=== PATIENT | male | born 1980 | race Caucasian/White ===

== ENCOUNTER → 2019-09-26 11:48 | Outpatient (BNVA) | payer MEDICAID, SELFPAY | PROVIDERS: PCP Family Medicine; Visit Provider Social Worker Clinical | DX: F63.81 Intermittent explosive disorder (principal); F33.1 Major depressive disorder, recurrent, moderate; F70 Mild intellectual disabilities | CPT/HCPCS: 90791 ==

== ENCOUNTER → 2019-10-28 12:38 | Outpatient (BNVA) | payer MEDICAID, SELFPAY | PROVIDERS: PCP Family Medicine; Visit Provider Social Worker Clinical | DX: F41.1 Generalized anxiety disorder (principal); F33.1 Major depressive disorder, recurrent, moderate | CPT/HCPCS: 90834 ==

== ENCOUNTER → 2019-11-01 11:43 | Outpatient (BNVA) | payer MEDICAID, SELFPAY | PROVIDERS: PCP Family Medicine; Visit Provider Nurse Practitioner | DX: F70 Mild intellectual disabilities (principal); F63.81 Intermittent explosive disorder; F33.3 Major depressive disorder, recurrent, severe with psychotic symptoms | CPT/HCPCS: 99213 ==

== ENCOUNTER → 2019-11-25 12:51 | Outpatient (BNVA) | payer MEDICAID, SELFPAY | PROVIDERS: PCP Family Medicine; Visit Provider Social Worker Clinical | DX: F63.81 Intermittent explosive disorder (principal); F70 Mild intellectual disabilities | CPT/HCPCS: 90834 ==

== ENCOUNTER → 2019-12-30 08:16 | Outpatient (BNVA) | payer MEDICAID, SELFPAY | PROVIDERS: PCP Family Medicine; Visit Provider Social Worker Clinical | DX: F33.3 Major depressive disorder, recurrent, severe with psychotic symptoms (principal); F63.81 Intermittent explosive disorder; F70 Mild intellectual disabilities | CPT/HCPCS: 90834 ==

== ENCOUNTER → 2020-01-24 07:44 | Outpatient (BNVA) | payer MEDICAID, SELFPAY | PROVIDERS: PCP Family Medicine; Visit Provider Nurse Practitioner | DX: F33.3 Major depressive disorder, recurrent, severe with psychotic symptoms (principal); F63.81 Intermittent explosive disorder; F70 Mild intellectual disabilities; F43.12 Post-traumatic stress disorder, chronic | CPT/HCPCS: 99213 ==

== ENCOUNTER → 2020-01-29 08:28 | Outpatient (BNVA) | payer MEDICAID, SELFPAY | PROVIDERS: PCP Family Medicine; Visit Provider Social Worker Clinical | DX: F33.3 Major depressive disorder, recurrent, severe with psychotic symptoms (principal); F63.81 Intermittent explosive disorder; F70 Mild intellectual disabilities | CPT/HCPCS: 90834 ==

== ENCOUNTER → 2020-03-02 07:56 | Outpatient (BNVA) | payer MEDICAID, SELFPAY | PROVIDERS: PCP Family Medicine; Visit Provider Social Worker Clinical | DX: F33.3 Major depressive disorder, recurrent, severe with psychotic symptoms (principal); F63.81 Intermittent explosive disorder; F70 Mild intellectual disabilities | CPT/HCPCS: 90834 ==

== ENCOUNTER → 2020-04-01 08:03 | Outpatient (BNVA) | payer MEDICAID, SELFPAY | PROVIDERS: PCP Family Medicine; Visit Provider Social Worker Clinical | DX: F33.3 Major depressive disorder, recurrent, severe with psychotic symptoms (principal); F63.81 Intermittent explosive disorder; F70 Mild intellectual disabilities | CPT/HCPCS: 90834 ==

== ENCOUNTER → 2020-04-21 09:22 | Outpatient (BNVA) | payer MEDICAID, SELFPAY | PROVIDERS: PCP Family Medicine; Visit Provider Nurse Practitioner | DX: F70 Mild intellectual disabilities (principal); F63.81 Intermittent explosive disorder; F33.3 Major depressive disorder, recurrent, severe with psychotic symptoms | CPT/HCPCS: 99213 ==

== ENCOUNTER → 2020-04-29 10:23 | Outpatient (BNVA) | payer MEDICAID, SELFPAY | PROVIDERS: PCP Family Medicine; Visit Provider Social Worker Clinical | DX: F33.3 Major depressive disorder, recurrent, severe with psychotic symptoms (principal); F63.81 Intermittent explosive disorder; F70 Mild intellectual disabilities | CPT/HCPCS: 90834 ==

== ENCOUNTER → 2020-05-18 11:22 | Outpatient (BNVA) | payer MEDICAID, SELFPAY | PROVIDERS: PCP Family Medicine; Visit Provider Nurse Practitioner Family | DX: E11.9 Type 2 diabetes mellitus without complications (principal); E78.5 Hyperlipidemia, unspecified; I10 Essential (primary) hypertension; Z87.442 Personal history of urinary calculi | CPT/HCPCS: 80053; 80061; 82043; 83036; 85025; 87086 ==

== ENCOUNTER → 2020-06-01 09:31 | Outpatient (BNVA) | payer MEDICAID, SELFPAY | PROVIDERS: PCP Family Medicine; Visit Provider Social Worker Clinical | DX: F33.3 Major depressive disorder, recurrent, severe with psychotic symptoms (principal); F63.81 Intermittent explosive disorder; F70 Mild intellectual disabilities | CPT/HCPCS: 90834 ==

== ENCOUNTER → 2020-07-01 08:20 | Outpatient (BNVA) | payer MEDICAID, SELFPAY | PROVIDERS: PCP Family Medicine; Visit Provider Social Worker Clinical | DX: F33.3 Major depressive disorder, recurrent, severe with psychotic symptoms (principal); F63.81 Intermittent explosive disorder; F70 Mild intellectual disabilities | CPT/HCPCS: 90834 ==

== ENCOUNTER → 2020-07-14 08:27 | Outpatient (BNVA) | payer MEDICAID, SELFPAY | PROVIDERS: PCP Family Medicine; Visit Provider Nurse Practitioner | DX: F33.3 Major depressive disorder, recurrent, severe with psychotic symptoms (principal); F70 Mild intellectual disabilities; F63.81 Intermittent explosive disorder | CPT/HCPCS: 99213 ==

== ENCOUNTER → 2020-07-27 08:57 | Outpatient (BNVA) | payer MEDICAID, SELFPAY | PROVIDERS: PCP Family Medicine; Visit Provider Social Worker Clinical | DX: F33.3 Major depressive disorder, recurrent, severe with psychotic symptoms (principal); F63.81 Intermittent explosive disorder; F70 Mild intellectual disabilities | CPT/HCPCS: 90834 ==

== ENCOUNTER → 2020-08-17 11:38 | Outpatient (BNVA) | payer MEDICAID, SELFPAY | PROVIDERS: PCP Family Medicine; Visit Provider Nurse Practitioner Family | DX: E11.9 Type 2 diabetes mellitus without complications (principal); E11.65 Type 2 diabetes mellitus with hyperglycemia; I10 Essential (primary) hypertension; E78.5 Hyperlipidemia, unspecified | CPT/HCPCS: 80053; 80061; 83036; 83735; 85025 ==

== ENCOUNTER → 2020-09-01 08:21 | Outpatient (BNVA) | payer MEDICAID, SELFPAY | PROVIDERS: PCP Family Medicine; Visit Provider Social Worker Clinical | DX: F70 Mild intellectual disabilities (principal); F63.81 Intermittent explosive disorder; F33.3 Major depressive disorder, recurrent, severe with psychotic symptoms | CPT/HCPCS: 90834 ==

== ENCOUNTER → 2020-09-30 09:34 | Outpatient (BNVA) | payer MEDICAID, SELFPAY | PROVIDERS: PCP Family Medicine; Visit Provider Social Worker Clinical | DX: F70 Mild intellectual disabilities (principal); F63.81 Intermittent explosive disorder; F33.3 Major depressive disorder, recurrent, severe with psychotic symptoms | CPT/HCPCS: 90834 ==

== ENCOUNTER → 2020-10-29 07:57 | Outpatient (BNVA) | payer MEDICAID, SELFPAY | PROVIDERS: PCP Family Medicine; Visit Provider Social Worker Clinical | DX: F63.81 Intermittent explosive disorder (principal); F70 Mild intellectual disabilities; F33.3 Major depressive disorder, recurrent, severe with psychotic symptoms | CPT/HCPCS: 90834 ==

== ENCOUNTER → 2020-11-16 12:22 | Outpatient (BNVA) | payer MEDICAID, SELFPAY | PROVIDERS: PCP Family Medicine; Visit Provider Social Worker Clinical | DX: F70 Mild intellectual disabilities (principal); F33.1 Major depressive disorder, recurrent, moderate; E11.65 Type 2 diabetes mellitus with hyperglycemia | CPT/HCPCS: 90791; 80053; 80061; 83036; 85025 ==

== ENCOUNTER → 2020-12-02 08:15 | Outpatient (BNVA) | payer MEDICAID, SELFPAY | PROVIDERS: PCP Family Medicine; Visit Provider Social Worker Clinical | DX: F33.3 Major depressive disorder, recurrent, severe with psychotic symptoms (principal); F63.81 Intermittent explosive disorder; F70 Mild intellectual disabilities | CPT/HCPCS: 90834 ==

== ENCOUNTER → 2020-12-16 07:52 | Outpatient (BNVA) | payer MEDICAID, SELFPAY | PROVIDERS: PCP Family Medicine; Visit Provider Nurse Practitioner | DX: F70 Mild intellectual disabilities (principal); F63.81 Intermittent explosive disorder; F33.3 Major depressive disorder, recurrent, severe with psychotic symptoms | CPT/HCPCS: 99214 ==

== ENCOUNTER → 2020-12-31 08:13 | Outpatient (BNVA) | payer MEDICAID, SELFPAY | PROVIDERS: PCP Family Medicine; Visit Provider Social Worker Clinical | DX: F63.81 Intermittent explosive disorder (principal); F70 Mild intellectual disabilities; F33.3 Major depressive disorder, recurrent, severe with psychotic symptoms | CPT/HCPCS: 90834 ==

== ENCOUNTER → 2021-01-28 08:37 | Outpatient (BNVA) | payer MEDICAID, SELFPAY | PROVIDERS: PCP Family Medicine; Visit Provider Social Worker Clinical | DX: F63.81 Intermittent explosive disorder (principal); F33.3 Major depressive disorder, recurrent, severe with psychotic symptoms | CPT/HCPCS: 90834 ==

== ENCOUNTER → 2021-03-02 08:56 | Outpatient (BNVA) | payer MEDICAID, SELFPAY | PROVIDERS: PCP Family Medicine; Visit Provider Social Worker Clinical | DX: F63.81 Intermittent explosive disorder (principal); F33.3 Major depressive disorder, recurrent, severe with psychotic symptoms; F70 Mild intellectual disabilities | CPT/HCPCS: 90834 ==

== ENCOUNTER → 2021-03-10 12:45 | Outpatient (BNVA) | payer MEDICAID, SELFPAY | PROVIDERS: PCP Family Medicine; Visit Provider Nurse Practitioner | DX: F33.3 Major depressive disorder, recurrent, severe with psychotic symptoms (principal); F70 Mild intellectual disabilities; F63.81 Intermittent explosive disorder | CPT/HCPCS: 99214 ==

== ENCOUNTER → 2021-04-01 07:35 | Outpatient (BNVA) | payer MEDICAID, SELFPAY | PROVIDERS: PCP Family Medicine; Visit Provider Social Worker Clinical | DX: F63.81 Intermittent explosive disorder (principal); F33.3 Major depressive disorder, recurrent, severe with psychotic symptoms; F70 Mild intellectual disabilities | CPT/HCPCS: 90834 ==

== ENCOUNTER → 2021-04-29 15:06 | Outpatient (BNVA) | payer MEDICAID, SELFPAY | PROVIDERS: PCP Family Medicine; Visit Provider Social Worker Clinical | DX: F63.81 Intermittent explosive disorder (principal); F33.3 Major depressive disorder, recurrent, severe with psychotic symptoms; F70 Mild intellectual disabilities | CPT/HCPCS: 90834 ==

== ENCOUNTER → 2021-05-18 08:48 | Outpatient (BNVA) | payer MEDICAID, SELFPAY | PROVIDERS: PCP Family Medicine; Visit Provider Social Worker Clinical | DX: F63.81 Intermittent explosive disorder (principal); F33.3 Major depressive disorder, recurrent, severe with psychotic symptoms; F70 Mild intellectual disabilities | CPT/HCPCS: 90834 ==

== ENCOUNTER → 2021-06-02 13:09 | Outpatient (BNVA) | payer MEDICAID, SELFPAY | PROVIDERS: PCP Family Medicine; Visit Provider Nurse Practitioner | DX: F33.3 Major depressive disorder, recurrent, severe with psychotic symptoms (principal); F70 Mild intellectual disabilities; F63.81 Intermittent explosive disorder | CPT/HCPCS: 99214 ==

== ENCOUNTER → 2021-06-16 07:20 | Outpatient (BNVA) | payer MEDICAID, SELFPAY | PROVIDERS: PCP Family Medicine; Visit Provider Social Worker Clinical | DX: F63.81 Intermittent explosive disorder (principal); F33.3 Major depressive disorder, recurrent, severe with psychotic symptoms; F43.12 Post-traumatic stress disorder, chronic | CPT/HCPCS: 90834 ==

== ENCOUNTER → 2021-07-19 08:00 | Outpatient (BNVA) | payer MEDICAID, SELFPAY | PROVIDERS: PCP Family Medicine; Visit Provider Social Worker Clinical | DX: F63.81 Intermittent explosive disorder (principal); F33.3 Major depressive disorder, recurrent, severe with psychotic symptoms; F70 Mild intellectual disabilities | CPT/HCPCS: 90834 ==

== ENCOUNTER → 2021-08-16 07:58 | Outpatient (BNVA) | payer MEDICAID, SELFPAY | PROVIDERS: PCP Family Medicine; Visit Provider Social Worker Clinical | DX: F33.3 Major depressive disorder, recurrent, severe with psychotic symptoms (principal); F63.81 Intermittent explosive disorder; F70 Mild intellectual disabilities | CPT/HCPCS: 90834 ==

== ENCOUNTER → 2021-08-18 13:05 | Outpatient (BNVA) | payer MEDICAID, SELFPAY | PROVIDERS: PCP Family Medicine; Visit Provider Nurse Practitioner | DX: F33.3 Major depressive disorder, recurrent, severe with psychotic symptoms (principal); F70 Mild intellectual disabilities; F63.81 Intermittent explosive disorder | CPT/HCPCS: 99214 ==

== ENCOUNTER → 2021-09-22 08:00 | Outpatient (BNVA) | payer MEDICAID, SELFPAY | PROVIDERS: PCP Family Medicine; Visit Provider Social Worker Clinical | DX: F63.81 Intermittent explosive disorder (principal); F33.3 Major depressive disorder, recurrent, severe with psychotic symptoms; F79 Unspecified intellectual disabilities | CPT/HCPCS: 90834 ==

== ENCOUNTER → 2021-10-19 12:23 | Outpatient (BNVA) | payer MEDICAID, SELFPAY | PROVIDERS: PCP Family Medicine; Visit Provider Nurse Practitioner Family | DX: E11.65 Type 2 diabetes mellitus with hyperglycemia (principal); R35.0 Frequency of micturition; I10 Essential (primary) hypertension; Z87.442 Personal history of urinary calculi; E78.5 Hyperlipidemia, unspecified | CPT/HCPCS: 80053; 80061; 82043; 82306; 82607; 83036; 83735; 84443; 85025 ==

== ENCOUNTER → 2021-10-25 08:20 | Outpatient (BNVA) | payer MEDICAID, SELFPAY | PROVIDERS: PCP Family Medicine; Visit Provider Social Worker Clinical | DX: F63.81 Intermittent explosive disorder (principal); F33.3 Major depressive disorder, recurrent, severe with psychotic symptoms; F70 Mild intellectual disabilities | CPT/HCPCS: 90834 ==

== ENCOUNTER → 2021-11-10 12:40 | Outpatient (BNVA) | payer MEDICAID, SELFPAY | PROVIDERS: PCP Family Medicine; Visit Provider Nurse Practitioner | DX: F70 Mild intellectual disabilities (principal); F33.3 Major depressive disorder, recurrent, severe with psychotic symptoms; F63.81 Intermittent explosive disorder | CPT/HCPCS: 99214 ==

== ENCOUNTER → 2021-12-01 07:55 | Outpatient (BNVA) | payer MEDICAID, SELFPAY | PROVIDERS: PCP Family Medicine; Visit Provider Social Worker Clinical | DX: F63.81 Intermittent explosive disorder (principal); F33.3 Major depressive disorder, recurrent, severe with psychotic symptoms; F70 Mild intellectual disabilities | CPT/HCPCS: 90834 ==

== ENCOUNTER → 2021-12-29 07:18 | Outpatient (BNVA) | payer MEDICAID, SELFPAY | PROVIDERS: PCP Family Medicine; Visit Provider Social Worker Clinical | DX: F63.81 Intermittent explosive disorder (principal); F33.3 Major depressive disorder, recurrent, severe with psychotic symptoms; F70 Mild intellectual disabilities | CPT/HCPCS: 90834 ==

== ENCOUNTER → 2022-01-27 07:34 | Outpatient (BNVA) | payer MEDICAID, SELFPAY | PROVIDERS: PCP Family Medicine; Visit Provider Social Worker Clinical | DX: F63.81 Intermittent explosive disorder (principal); F33.3 Major depressive disorder, recurrent, severe with psychotic symptoms; F70 Mild intellectual disabilities | CPT/HCPCS: 90834 ==

== ENCOUNTER → 2022-02-10 12:35 | Outpatient (BNVA) | payer MEDICAID, SELFPAY | PROVIDERS: PCP Family Medicine; Visit Provider Nurse Practitioner | DX: F33.3 Major depressive disorder, recurrent, severe with psychotic symptoms (principal); F70 Mild intellectual disabilities; F63.81 Intermittent explosive disorder | CPT/HCPCS: 99214 ==

== ENCOUNTER → 2022-02-16 06:22 | Outpatient (BNVA) | payer MEDICAID, SELFPAY | PROVIDERS: PCP Family Medicine; Visit Provider Social Worker Clinical | DX: F63.81 Intermittent explosive disorder (principal); F33.3 Major depressive disorder, recurrent, severe with psychotic symptoms; F70 Mild intellectual disabilities | CPT/HCPCS: 90834 ==

== ENCOUNTER → 2022-05-05 10:50 | Outpatient (BNVA) | payer MEDICAID, SELFPAY | PROVIDERS: PCP Family Medicine; Visit Provider Nurse Practitioner Family | DX: E11.65 Type 2 diabetes mellitus with hyperglycemia (principal); R35.0 Frequency of micturition; I10 Essential (primary) hypertension; E78.5 Hyperlipidemia, unspecified; E55.9 Vitamin D deficiency, unspecified | CPT/HCPCS: 80053; 80061; 82306; 83036; 83735; 84443; 85025 ==

== ENCOUNTER → 2022-09-08 09:25 | Outpatient (BNVA) | payer MEDICAID, SELFPAY | PROVIDERS: PCP Family Medicine; Visit Provider Nurse Practitioner Family | DX: J06.9 Acute upper respiratory infection, unspecified (principal); E78.5 Hyperlipidemia, unspecified; E11.9 Type 2 diabetes mellitus without complications; E11.65 Type 2 diabetes mellitus with hyperglycemia; R05.9 Cough, unspecified; B02.9 Zoster without complications; I10 Essential (primary) hypertension | CPT/HCPCS: 80053; 80061; 83036; 85025 ==

== ENCOUNTER → 2023-05-17 10:19 | Outpatient (BNVA) | payer MEDICAID, SELFPAY | PROVIDERS: PCP Family Medicine; Visit Provider Nurse Practitioner Family | DX: I10 Essential (primary) hypertension (principal); R35.0 Frequency of micturition; E11.65 Type 2 diabetes mellitus with hyperglycemia; E55.9 Vitamin D deficiency, unspecified; W57.XXXA Bitten or stung by nonvenomous insect and other nonvenomous arthropods, initial encounter | CPT/HCPCS: 80053; 80061; 82306; 83036; 83735; 84443; 85025; 86618; 86666; 86757 ==

== ENCOUNTER → 2023-11-16 13:42 | Outpatient (BNVA) | payer MEDICAID, SELFPAY | PROVIDERS: PCP Nurse Practitioner Family; Visit Provider Nurse Practitioner Family | DX: E11.65 Type 2 diabetes mellitus with hyperglycemia (principal); E55.9 Vitamin D deficiency, unspecified | CPT/HCPCS: 80053; 80061; 82306; 83036; 83735; 84443; 85025 ==

== ENCOUNTER → 2024-09-12 10:48 | Outpatient (BNVA) | payer MEDICAID, SELFPAY | PROVIDERS: PCP Nurse Practitioner Family; Visit Provider Nurse Practitioner Family | DX: E11.65 Type 2 diabetes mellitus with hyperglycemia (principal) | CPT/HCPCS: 80053; 80061; 82306; 83036; 84443; 85025 ==

== ENCOUNTER → 2025-01-06 10:48 | Outpatient (BNVA) | payer MEDICAID, SELFPAY | PROVIDERS: PCP Nurse Practitioner Family; Visit Provider Nurse Practitioner Family | DX: E11.65 Type 2 diabetes mellitus with hyperglycemia (principal) | CPT/HCPCS: 80053; 80061; 82306; 83036 ==

== ENCOUNTER → 2025-07-08 13:43 | Outpatient (BNVA) | payer MEDICAID, SELFPAY | PROVIDERS: PCP Nurse Practitioner Family; Visit Provider Nurse Practitioner Family | DX: E11.65 Type 2 diabetes mellitus with hyperglycemia (principal) | CPT/HCPCS: 80053; 80061; 82306; 83036; 84443; 85025 ==

== ENCOUNTER → 2025-07-30 09:54 | Outpatient (BNVA) | payer MEDICAID, SELFPAY | PROVIDERS: PCP Nurse Practitioner Family; Visit Provider Nurse Practitioner Family | DX: R74.8 Abnormal levels of other serum enzymes (principal) | CPT/HCPCS: 80076; 86705; 86706; 86709; 86803; 87340 ==

== ENCOUNTER 2025-08-08 10:23 | Outpatient (CLI) | payer MEDICAID, SELFPAY ==
--- NOTE | 2025-08-08 10:45 | US_ITS ---
WS: [id number] RIGHT UPPER QUADRANT ULTRASOUND HISTORY: R74.8 - Abnormal levels of other serum enzymes COMPARISON: None available. Liver: 17.8 cm in length. Normal size liver and echogenicity. No bile duct dilatation or mass. Portal Vein: Normal hepatopetal flow with monophasic waveform. Gallbladder: Mildly contracted gallbladder with stones. No pericholecystic fluid or gallbladder wall thickening. CBD: 0.3 cm Pancreas: Portions of the head and tail are obscured. The body is negative. Right kidney: 11.1 cm in length. Normal size and echogenicity. No hydronephrosis or mass. Cortical cyst lower pole 1.1 x 1.3 x 1.0 cm. Aorta and IVC: Unremarkable abdominal aorta and IVC. No ascites. US/US liver [id number] IMPRESSION: 1. Cholelithiasis and contracted gallbladder. No evidence for acute cholecysti tis. Recommend evaluation by general surgery. 2. Negative liver. 3. Cortical cyst lower pole RIGHT kidney, 1.3 cm.
== END 2025-08-08 10:24 | disposition home or self-care (01) ==
LOC: RAD 10:24
PROVIDERS: PCP Nurse Practitioner Family; Visit Provider Nurse Practitioner Family
DX: R74.8 Abnormal levels of other serum enzymes (principal); K80.20 Calculus of gallbladder without cholecystitis without obstruction; N28.1 Cyst of kidney, acquired
CPT/HCPCS: 76705